=== PATIENT | female | born 1995 | race Caucasian/White ===

== ENCOUNTER 2020-05-27 08:29 | Emergency (ER) | payer MEDICAID, SELFPAY ==
[2020-05-27 08:40] VITALS: BP 133/73; PULSE 89; RESP 16; TEMP 36.8; O2SAT 98; BMI 47.2
--- NOTE | 2020-05-27 08:50 | ED.FEMALEGU ---
HPI - Female Genitourinary General Chief complaint: Urogenital-Female Stated complaint: heavy menses Time Seen by Provider: 05/27/20 08:43 Source: patient Mode of arrival: Ambulatory Limitations: no limitations History of Present Illness HPI Narrative: Patient is a 25-year-old female who presents with vaginal bleeding. She has a Nexplanon device which has been implanted for the last 1 year. She previously had 1 for 3 years she has not ever had bleeding on them before. She is concerned because she thinks she may be miscarrying. She thinks she may have miscarried when she was 15 but she never took a test. Today she started bleeding when she woke up she has yet to soak or change a pad. she yesterday she had some intense lower cramping but today her pain is much improved. MD Complaint: vaginal bleeding Quality: Cramping Related Data Home Medications Medication Instructions Recorded Confirmed etonogestrel 68 mg subdermal SUBDERMAL each 11/16/18 01/02/19 implant Allergies Allergy/AdvReac Type Severity Reaction Status Date / Time No Known Drug Allergies Allergy Unknown Verified 05/27/20 08:40 DUST Allergy Mild CONGESTION/ Uncoded 05/27/20 08:40 SNEEZING Review of Systems Review of Systems Narrative: GENERAL: Denies chills, fatigue, malaise, fever, sweats, travel HEENT: Denies sinus pain, ear pain, sore throat, difficulty swallowing, neck pain RESPIRATORY: Denies dyspnea, cough, wheezing, hemoptysis, sputum. CARDIOVASCULAR: Denies chest pain, palpitations, orthopnea, edema GASTROINTESTINAL: Denies nausea, vomiting, abdominal pain, diarrhea, constipation, melena. : See HPI MUSCULOSKELETAL: Denies weakness, joint pain, or bony pain SKIN: No rash, no erythema, no pruritus NEUROLOGIC: Denies weakness, dizziness, headache, numbness, change in speech, confusion PSYCHIATRIC: No concerning psychosocial issues. 12 point review of systems is negative except for those stated above and HPI Patient History Medical History (Updated 05/27/20 @ 08:59 by Kirsten Hamilton DO) Acne (Chronic) ADHD (attention deficit hyperactivity disorder) (Chronic) Anxiety (Chronic) Chronic back pain (Chronic) Chronic headaches (Chronic) Depression (Chronic) Eczema (Chronic) Hayfever (Chronic) Migraines (Chronic) Painful menstrual periods (Chronic) Surgical History (Updated 06/20/18 @ 11:27 by Joanie Valdez) Anesthesia complication (Resolved) Status post delivery (Resolved 07/24/15) Family History (Updated 06/20/18 @ 11:29 by oJanie Valdez) Father Age: 56 Obesity, unspecified obesity severity, unspecified obesity type Essential hypertension, hypertension with unspecified goal High cholesterol Gout, unspecified cause, unspecified chronicity, unspecified site Colitis Grandfather Smoker Cancer Pulmonary fibrosis Grandmother Age: 79 Overweight Heart disease Essential hypertension, hypertension with unspecified goal High cholesterol Mother Age: 57 ADD (attention deficit disorder) Grandfather Obesity, unspecified obesity severity, unspecified obesity type Heart disease Essential hypertension, hypertension with unspecified goal High cholesterol Mental health problem Clogged artery (heart) Grandmother Age: 77 Healthy female adult Sister Age: 36 ADD (attention deficit disorder) Sister Age: 29 Overweight Mental health problem Substance Use Type: marijuana Exam Initial Vital Signs Initial Vital Signs: Vital Signs Temperature 98.2 F 05/27/20 08:40 Pulse Rate 89 05/27/20 08:40 Respiratory Rate 16 05/27/20 08:40 Blood Pressure 133/73 05/27/20 08:40 Pulse Oximetry 98 05/27/20 08:40 GENERAL: Overweight well-appearing young female and in no acute distress. HEENT: Head atraumatic,EOMI, pupils reactive, face symmetric, moist mucous membranes CARDIOVASCULAR: Regular rate and rhythm without murmurs, rubs or gallops. RESPIRATORY: Breath sounds equal bilaterally, no wheezes rales or rhonchi. ABDOMEN: Soft, nontender. Normoactive bowel sounds all 4 quadrants. No guarding or rebound. EXTREMITIES: Normal range of motion, no clubbing or edema. Neurovascularly intact NEUROLOGICAL: Alert and oriented x4.Normal gait and speech. Cranial nerves II through XII grossly intact. SKIN: Warm, dry, no laceration, no petechiae, no rashes or lesions. Scores ABCD2 Citation: Lancet. 2006Oct 14;369(5773):283-92. Validation and refinement of scores to predict very early stroke risk after transient ischaemic attack. Tori SC1, Ghada PM, [place], Leobardo MF, Charlotte JS, Marissa AL, Babar S. Course Orders Ordered: ED Orders 05/27/20 08:36 Urine Microscopic Stat Vital Signs Vital signs: Vital Signs - 8 hr 05/27/20 08:40 05/27/20 09:12 Temperature 98.2 F Pulse Rate 89 84 Respiratory Rate 16 Blood Pressure 133/73 130/70 Pulse Oximetry 98 97 MDM - Female Genitourinary Lab Data Labs: Lab Results 05/27/20 Range/Units 08:36 Urine RBC >100/hpf H (0-5/HPF) Urine WBC 5-10/hpf H (0-5/HPF) Ur Squamous Epith Cells 10-30 /hpf H (0-5/HPF) Urine Bacteria Many (>30) H (None) Ur Culture Indicated? Cult not indicated Point of Care Testing Test Results Negative Urine Dip Bedside Urine Glucose Negative Bedside Urine Bilirubin + 1 Bedside Urine Ketone +/- 5 Urine Specific [place] 1.025 Bedside Urine Occult Blood +++ Bedside Urine pH 6.0 Bedside Urine Protein ++ 100 Bedside Urine Urobilinogen - Negative Bedside Urine Nitrite - Negative Bedside Urine Leukocytes + 70 Esterase MDM Narrative Medical decision making narrative: Patient is not she has minimal pain she has had minimal bleeding. At this time I think this is more likely to be spotting. No testing or imaging required at this time. I have discussed with patient if she continues to have heavy bleeding more than 2 pads or tampons an hour and intense pain and she should return to the emergency department at which time we will do will more. Discharge Plan Departure Patient Disposition: Home Clinical Impression: Vaginal bleeding Discharge Date/Time: 05/27/20 09:13 Instructions: DI for Vaginal Bleeding Activity Restrictions/Additional Instructions: *You have been diagnosed with vaginal bleeding *What to do: This is likely spotting which can happen with the Nexplanon device. Recommend watchful waiting expect to have some cramping and increased bleeding today. You are not so this is not a miscarriage *Continue to take medications as directed Ibuprofen 800 mg every 8 hours if needed for [id number] pain *Follow up with your primary care provider in 2-3 days *Return to ER if you should have heavy bleeding more than to super pads or tampons an hour, passing out, increased pain or any new, worsening or concerning symptoms Prescriptions: No Action Nexplanon 68 mg implant Subdermal RF: 0 Referrals: Екатерина Ramirez ARNP [Primary Care Provider] -
[2020-05-27 09:04] LABS: Bacteria Urine Many (>30); Culture Indicated Urine Cult Not Indicated; RBC Urine >100/HPF (0-5/HPF); Squamous Epithelial Cell Urine 10-30 /HPF (0-5/HPF); WBC Urine 5-10/HPF (0-5/HPF)
[2020-05-27 09:12] VITALS: BP 130/70; PULSE 84; O2SAT 97
== END 2020-05-27 09:13 | disposition home or self-care (01) ==
PROVIDERS: Emergency Provider Emergency Medicine; PCP Internal Medicine
DX: N93.9 Abnormal uterine and vaginal bleeding, unspecified (principal)
CPT/HCPCS: 81003; 81015; 81025; 99282

== ENCOUNTER → 2021-03-11 12:08 | Outpatient (CLI) | payer OTHER, MEDICAID, SELFPAY ==
--- NOTE | 2021-03-11 12:10 | DI.RAD.S_ITS ---
PROCEDURE: XR FINGER LT MIN 2V INDICATIONS: Reduced Range of Motion TECHNIQUE: AP hand, 2 views of the 3rd finger(s) acquired. COMPARISON: None. FINDINGS: Bones: 3rd middle phalangeal base fracture. Soft tissues: No suspicious soft tissue calcifications. IMPRESSION: Intra-articular volar plate fracture involving the 3rd middle phalangeal base. Dictated by: Grupo Ruiz RRColleen Interpreted: Junior Hernandez MD on 03/11/2021 at 13:05 Transcribed by: HINA on 03/11/2021 at 13:06 Approved by: Junior Hernandez M.D. on 03/12/2021 at 9:32
== END ==
PROVIDERS: Referring Provider Physician Assistant; Visit Provider Physician Assistant
DX: S62.623A Displaced fracture of middle phalanx of left middle finger, initial encounter for closed fracture (principal); X58.XXXA Exposure to other specified factors, initial encounter
CPT/HCPCS: 73140

== ENCOUNTER → 2021-03-24 15:57 | Outpatient (CLI) | payer OTHER, MEDICAID, SELFPAY ==
--- NOTE | 2021-03-24 | DI.RAD.S_ITS ---
PROCEDURE: XR CERVICAL SPINE MIN 6V INDICATIONS: PAIN TECHNIQUE: 6 views of the cervical spine were acquired. COMPARISON: None. FINDINGS: Bones: No fractures or dislocations to the C7 level. No suspicious bony lesions. There is normal range of motion between flexion and extension, with preserved normal bony alignment. Soft tissues: Prevertebral soft tissues are normal in thickness. IMPRESSION: Range of motion is within normal limits. No significant osseous abnormality. Dictated by: Wing Aleman M.D. on 03/24/2021 at 16:43 Approved by: Wing Aleman M.D. on 03/24/2021 at 16:44
--- NOTE | 2021-03-24 15:59 | DI.RAD.S_ITS ---
PROCEDURE: XR LUMBAR SPINE 2-3V INDICATIONS: PAIN TECHNIQUE: 3 views of the lumbar spine were acquired. COMPARISON: None. FINDINGS: Bones: No fracture. Mild narrowing of the L5-S1 disc space. Multilevel degenerative endplate sclerosis and spurring. Diffuse facet arthropathy. Mild levocurvature. Soft tissues: Overlying bowel gas pattern is normal. No suspicious soft tissue calcifications. IMPRESSION: Mild L5-S1 disc degeneration Levocurvature Dictated by: Dwight Browning M.D. on 03/24/2021 at 16:49 Approved by: Dwight Browning M.D. on 03/24/2021 at 16:50
--- NOTE | 2021-03-24 15:59 | DI.RAD.S_ITS ---
PROCEDURE: XR THORACIC SPINE 2V INDICATIONS: PAIN TECHNIQUE: 2 views of the thoracic spine were acquired. COMPARISON: [facility], , XR CXR 2 VIEW, 09/12/2002, 12:05. FINDINGS: Bones: No fractures or dislocations. No suspicious bony lesions. 12 pairs of ribs are noted, and appear intact where visualized. Soft tissues: No paravertebral stripe thickening. IMPRESSION: No significant osseous abnormality. Dictated by: Wing Aleman M.D. on 03/24/2021 at 16:44 Approved by: Wing Aleman M.D. on 03/24/2021 at 16:45
== END ==
PROVIDERS: Referring Provider Chiropractor; Visit Provider Chiropractor
DX: M99.01 Segmental and somatic dysfunction of cervical region (principal); M99.02 Segmental and somatic dysfunction of thoracic region; M99.04 Segmental and somatic dysfunction of sacral region; M99.05 Segmental and somatic dysfunction of pelvic region; M54.2 Cervicalgia; M54.5 Low back pain; M51.37 Other intervertebral disc degeneration, lumbosacral region
CPT/HCPCS: 72052; 72070; 72100